=== PATIENT | female | born 1985 | race Caucasian/White ===

== ENCOUNTER 2018-12-31 02:31 | Inpatient (IN) | payer OTHER ==
[2018-12-31] MEDS ORDERED: IBUPROFEN 600 MG TAB PO PRN (02:47)
[2018-12-31] MEDS ORDERED: OLIVE OIL 118 ML BTL MISC PRN (02:47)
[2018-12-31] MEDS ORDERED: MISOPROSTOL 200 MCG TAB PR PRN (02:47)
[2018-12-31] MEDS ORDERED: EPSOM SALT 454 GM TP PRN (02:47)
[2018-12-31] MEDS ORDERED: OXYTOCIN/RINGERS LACTATE 1,000 ML IV PRN (02:47)
[2018-12-31] MEDS ORDERED: LIDOCAINE 1% 300 MG/30 ML SDV SC PRN (02:47)
[2018-12-31] MEDS ORDERED: LR 1,000 ML IV PRN (02:47)
[2018-12-31 02:59] LABS: PLATELET COUNT 297 10^3/uL (150-400)
--- NOTE | 2018-12-31 04:14 | PDGENHP ---
History and Physical History and Physical: Care: [facility] HPI: Patient is a 33 yo G 4 P 3 @ 40.4 weeks that presents to L&D with complaints of uterine contractions starting around 1 am EDC: 12/27/2018 which is based on LMP: 03/11/18 which is known and consistent with Ultrasound at 8 weeks. Her is complicated by: baby with known bilateral club feet; no other anomalies found on ultrasound and normal genetic testing; anemia treated with iron; hx of precipitous births Review of Systems: Constitutional: Denies any fever, chills, or fatigue HEENT: denies any visual changes, difficulty swallowing, hearing loss Cardiovascular: Denies any chest pain, palpitations, leg swelling Respiratory: denies any cough, wheezing, or shortness of breathe GI: Denies any nausea, vomiting, diarrhea, constipation : denies any dysuria, urgency, frequency, vaginal bleeding Musculoskeletal: denies any muscle or bone pain Skin: denies any rashes Neuro: denies any headache, seizures, lightheadedness, dizziness, or loss of consciousness Psychiatric: denies any depression, anxiety, or SI/HI thoughts HISTORY: Previous OB history: 3 prior vaginal births, longest labor was with first baby lasting 4 hours; other 2 babies born after 2 hours of labor Past medical history: Nothing significant Past surgical history: none Social: Denies any alcohol, tobacco, or drug use. Family history: Not relevant Medications: PNV, iron Allergies (list reaction): NKDA LABS: Rh: B+ ABS: Neg Rubella: Immune HbsAg: NR HIV: NR VDRL: NR 1hr: 121 GC: Neg Chlamydia: Neg Pap: Normal (06/03/18) GBS: neg BMI: (prepreg) 26.77 PHYSICAL EXAM: Constitutional: WN, A&Ox3 HEENT: normocephalic atraumatic, supple Skin: Warm, dry, intact Heart: RRR, no murmur Chest: CTA-B Abdomen: Soft, nontender, gravid SVE: 5-6/100/ soft and stretchy per RN Extremities: neg edema, negative homans sign Neuro: grossly normal Psych: normal affect assessment: FHT baseline 135 +accels, no decels, moderate variability Contractions: toco q 3 minutes, lasting a minute Assessment: 1) 33 yo G 4 P 3 with IUP@ 40.4 weeks; known bilaterally club feet 2) active labor 3) GBS neg 4) Cat 1 FHR tracing Plan: 1) Admit to L&D 2) NICU advised to be present for delivery 3) Expectant management 4) Anticipate
--- NOTE | 2018-12-31 05:55 | OBDEL ---
Info Type: Vaginal Presentation at Delivery: Vertex L&D Analgesia/Anesthesia Type: None GBS+: No Indications for Delivery: Spontaneous Labor Vaginal Delivery - Delivery Provider Delivery Physician/CNM: Eda Hernandez - Labor and Delivery Onset of Contractions Date: 12/31/18 Onset of Contractions Time: 00:30 Onset of Contractions Type: Spontaneous Rupture of Membranes Date: 12/31/18 (No rupture time available; no fluid present at ; bag was noted to be ruptured at time of ) Rupture of Membranes Type: Spontaneous (No fluid present at ; patient denies leaking fluid; bag was not present at delivery) Dilation Complete Date: 12/31/18 Dilation Complete Time: 05:20 Placenta Delivery Date: 12/31/18 Placenta Delivery Time: 05:40 Total Hours of Labor: 5 Laceration: 1st Degree (well approximated and nonbleeding; no repair indicated) Vaginal Sponge Count Correct: Yes Vaginal Needle Count Correct: Yes Vaginal Sweep Performed: Yes EBL: 150 Delivery Events: None [place] Data HAROON: 12/27/18 Gestational Age: 40 week(s) and 5 day(s) [place] Delivery Date: 12/31/18 Delivery Time: 05:25 Sex of : Male [place] Weight (gm): 4134 g Score (1 Min): 8 Score (5 Min): 9 ICD10 Worksheet Patient Problems: Problems Problem Status Onset Encounter for full-term uncomplicated delivery Acute - ICD10 Problem Qualifiers (1) Encounter for full-term uncomplicated delivery
[2018-12-31] MEDS ORDERED: HYDROCORTISONE 0.5% CREAM TP PRN (05:56)
[2018-12-31] MEDS ORDERED: ACETAMINOPHEN 325 MG TAB PO PRN (05:56)
[2018-12-31] MEDS: IBUPROFEN 600 MG TAB PO SCH ×3 (06:09→19:55)
[2019-01-01] MEDS: IBUPROFEN 600 MG TAB PO SCH ×2 (02:29→09:29)
[2019-01-01 08:59] VITALS: BP 103/73
--- NOTE | 2019-01-01 10:22 | OBPP ---
Progress Note Assessment/Plan: Assessment: Plan: 01/01/19 10:22 Stable PPD #1 P) Discharge home today. Follow up in the clinic week Subjective/ Course: 01/01/19 10:16 Feeling very good. Happy with . Baby sleepy yesterday but nursing well today. Bleeding minimal. Pain well controlled with ibuprofen. Desires discharge home today. Will be following up with specialist for baby next Wednesday. Objective: 12/31/18 02:50 Patient ABO/Rh B POSITIVE 12/31/18 02:50 Temp Pulse Resp BP Pulse Ox 36.1 C 85 14 103/73 95 01/01/19 08:59 01/01/19 08:59 01/01/19 08:59 01/01/19 08:59 01/01/19 08:59 Nipples intact bilaterally, breasts full Uterine Position/Fundal Height: Umbilicus -1 Uterine Tone: Firm
--- NOTE | 2019-01-01 10:23 | OBGCSDC ---
General Delivery Information - General Info : 4 Para: 4 Abortions: 0 Type: Vaginal L&D Analgesia/Anesthesia Type: None Admission Date: 12/31/18 Labs: Patient ABO/Rh B POSITIVE 12/31/18 02:50 Hct 38.1 % (38.0-47.0) 12/31/18 02:50 - Hospital Course : 01/01/19 10:16 Feeling very good. Happy with . Baby sleepy yesterday but nursing well today. Bleeding minimal. Pain well controlled with ibuprofen. Desires discharge home today. Will be following up with specialist for baby next Wednesday. Vaginal - Delivery Provider Delivery Physician/CNM: Eda Hernandez - Diagnosis Labor: Spontaneous Rupture of Membranes Type: Spontaneous (No fluid present at ; patient denies leaking fluid; bag was not present at delivery) Laceration: 1st Degree (well approximated and nonbleeding; no repair indicated) Delivery Events: None - Delivery EBL: 150 Data [place]: 12/27/18 Gestational Age: 40 week(s) and 5 day(s) [place] Delivery Date: 12/31/18 Delivery Time: 05:25 Sex of Infant: Male [place] Weight (gm): 4134 g Score (1 Min): 8 Score (5 Min): 9 Discharge Information - Discharge Information Condition: Good Instruction/Follow Up: Two Weeks, Four Weeks, Six Weeks
== END 2019-01-01 12:30 | disposition home or self-care (01) | DRG 807 ==
LOC: OBSVTOIN 02:31 → FLD 02:31 → FOB 08:13
PROVIDERS: ADMIT Advanced Practice Midwife; ATTEND Advanced Practice Midwife
PROC: 10E0XZZ Delivery of Products of Conception, External Approach (ICD-10-PCS; principal; 2018-12-31)
DX: O70.0 First degree perineal laceration during delivery (principal); O35.8XX0 Maternal care for other (suspected) fetal abnormality and damage, not applicable or unspecified; Z3A.40 40 weeks gestation of pregnancy; Z37.0 Single live birth
CPT/HCPCS: J2590